=== PATIENT | male | born 1965 | race Caucasian/White ===

== ENCOUNTER 2023-08-06 20:03 | Emergency (ER) | payer BC ==
[2023-08-06] MEDS ORDERED: Tetracaine 0.5% PF 4 ML BOT ONE (20:22)
[2023-08-06] MEDS ORDERED: Erythromycin Base 0.5% Ophth Oint 3.5 gm Tube ONE (21:21)
== END 2023-08-06 21:28 | disposition home or self-care (01) ==
LOC: BURERS 20:03
DX: S05.02XA Injury of conjunctiva and corneal abrasion without foreign body, left eye, initial encounter (principal); I10 Essential (primary) hypertension; E78.5 Hyperlipidemia, unspecified; Z79.899 Other long term (current) drug therapy; W45.8XXA Other foreign body or object entering through skin, initial encounter
CPT/HCPCS: 99283